=== PATIENT | female | born 2000 | race African-American/Black ===

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

== ENCOUNTER 2023-02-06 00:44 | Emergency (ER) | payer MEDICAID ==
[~2023-02-06] VITALS: Ht 165.1 cm; Wt 60.0 kg
[2023-02-06] MEDS ORDERED: NALOXONE HCL 0.4 MG/ML VIAL ONE (00:56)
[2023-02-06] MEDS ORDERED: NALOXONE HCL 0.4 MG/ML VIAL IV ONE (01:15)
[2023-02-06 01:25] LABS: Hemoglobin 9.7 g/dL (12.2-16.2); Red Cell Distribution Width 19.5 % (11.8-14.3)
[2023-02-06 01:29] LABS: Mean Corpuscular Hemoglobin 21.1 pg (28.0-32.0); Mean Corpuscular Hgb Conc. 29.5 g/dL (32.0-36.0); Mean Corpuscular Volume 71.6 fL (80.0-100.0); Red Blood Cells 4.61 10^6/uL (4.0-5.20); White Blood Cell 9.6 10^3/uL (4.4-10.8)
[2023-02-06] MEDS ORDERED: PANTOPRAZOLE 40 MG/10 ML VIAL INJ IV ONE (01:30)
[2023-02-06] MEDS ORDERED: ONDANSETRON HCL 4 MG/2 ML VIAL IV ONE (01:30)
[2023-02-06 01:33] LABS: Basophils % (manual) 0 (0.0-2.0); Blast Cells 0; Metamyelocytes % 0; Myelocytes % 0; Promyelocytes % 0; Reactive Lymphocytes 0
[2023-02-06 01:43] LABS: Alanine Aminotransferase 35 U/L (7-40); Alkaline Phosphatase 66 U/L (46-116); Anion Gap 16 (5-15); BUN/Creatinine Ratio 14.6 (10.0-20.0); Blood Urea Nitrogen 12 mg/dL (9-23); Calcium 9.1 mg/dL (8.5-10.1); Carbon Dioxide 17 mmol/L (20-30); Chloride 110 mmol/L (98-107); Glucose 96 mg/dL (74-106); Potassium 2.9 mmol/L (3.5-5.1); Sodium 143 mmol/L (136-145)
[2023-02-06 01:44] VITALS: TEMP 97.7
[2023-02-06 01:44] LABS: Albumin 4.3 g/dL (3.2-4.8); Aspartate Aminotransferase 56 U/L (13-40); Bilirubin, Total 1.2 mg/dL (0.2-1.0)
[2023-02-06 01:45] LABS: Total Protein 6.8 g/dL (5.7-8.2)
[2023-02-06 01:52] LABS: Blood Alcohol 279.7 mg/dL (<10)
[2023-02-06 02:59] LABS: Anisocytosis Slight; Band Neutrophils % (manual) 1; Eosinophils % (manual) 2 (0-7); Hypochromia Moderate; Lymphocytes % (manual) 54 (10.0-50.0); Monocytes % (manual) 15 (0-12)
[2023-02-06 03:06] LABS: Platelet Estimate Adequate
[2023-02-06] MEDS ORDERED: POTASSIUM CHL 20MEQ/100ML 100 ML IV ONE (05:00)
[2023-02-06] MEDS ORDERED: SODIUM CHLORIDE 0.9% 1,000 ML IVB ONE (05:00)
[2023-02-06 06:00] VITALS: BP 97/56; RESP 20; O2SAT 100
[2023-02-06 06:37] VITALS: PULSE 107
== END 2023-02-06 08:19 | disposition home or self-care (01) ==
LOC: EDBD 00:44 → ER 00:44
DX: F10.10 Alcohol abuse, uncomplicated (principal); R10.2 Pelvic and perineal pain; Y90.0 Blood alcohol level of less than 20 mg/100 ml
CPT/HCPCS: 36415; 70450; 80053; 80320; 82962; 83880; 84484; 84702; 85007; 85027; 93005; 96361; 96374; 96375; 99285; C9113; J2310; J2405; J3480; J7030

== ENCOUNTER 2023-07-14 21:13 | Emergency (ER) | payer MEDICAID ==
[~2023-07-14] VITALS: Ht 172.7 cm; Wt 60.0 kg
[2023-07-14 21:45] VITALS: TEMP 97
[2023-07-14 22:03] VITALS: PULSE 61; RESP 23; O2SAT 98
[2023-07-14 22:38] LABS: Basophils # (auto) 0 10 ^3/uL (0-0.2); Eosinophils # (auto) 0.1 10 ^3/uL (0-0.8); Hemoglobin 9.7 g/dL (12.2-16.2); Lymphocytes # (auto) 1.7 10 ^3/uL (0.4-5.4); Monocytes # (auto) 0.4 10 ^3/uL (0-1.3)
[2023-07-14 22:40] LABS: Basophils % (auto) 0.9 % (0.0-2.0); Eosinophils % (auto) 1.6 % (0.0-7.0); Hematocrit 31.3 % (36.0-46.0); Lymphocytes % (auto) 46.1 % (10.0-50.0); Mean Corpuscular Hemoglobin 21.4 pg (28.0-32.0); Mean Corpuscular Hgb Conc. 31.1 g/dL (32.0-36.0); Monocytes % (auto) 11.6 % (0.0-12.0); Neutrophils # (auto) 1.5 10 ^3/uL (1.6-8.6); Neutrophils % (auto) 39.8 % (37.0-80.0); Nucleated Red Blood Cells % 0.1 %; Red Blood Cells 4.54 10^6/uL (4.0-5.20); White Blood Cell 3.7 10^3/uL (4.4-10.8)
[2023-07-14 22:45] LABS: Red Cell Distribution Width 20.3 % (11.8-14.3)
[2023-07-14 22:57] LABS: Chloride 108 mmol/L (98-107); Potassium 3.3 mmol/L (3.5-5.1); Sodium 141 mmol/L (136-145)
[2023-07-14 22:58] LABS: Anion Gap 8 (5-15); Carbon Dioxide 25 mmol/L (20-30)
[2023-07-14 22:59] LABS: Calcium 9.2 mg/dL (8.5-10.1)
[2023-07-14 23:03] LABS: Glucose 108 mg/dL (74-106)
[2023-07-14 23:04] LABS: BUN/Creatinine Ratio 8.8 (10.0-20.0); Blood Alcohol 245.3 mg/dL (<10); Blood Urea Nitrogen 8 mg/dL (9-23)
[2023-07-15 00:18] LABS: Amphetamine Screen, Urine Neg (NEGATIVE); Barbiturate Scree,Urine Neg (NEGATIVE); Benzodiazephine Screen, Urine Neg (NEGATIVE); Cannabinoid Screen, Urine Pos (NEGATIVE); Cocaine Screen, Urine Neg (NEGATIVE); Opiate Scree,Urine Neg (NEGATIVE); Phencyclidine Screen, Urine Neg (NEGATIVE)
[2023-07-15] MEDS: SODIUM CHLORIDE 0.9% 500 ML IV ONE (02:15)
[2023-07-15 04:36] VITALS: BP 134/81; PULSE 81; RESP 16; O2SAT 100
== END 2023-07-15 04:45 | disposition home or self-care (01) ==
LOC: EDBD 21:13 → ER 21:13
DX: F10.129 Alcohol abuse with intoxication, unspecified (principal); R10.2 Pelvic and perineal pain; F12.10 Cannabis abuse, uncomplicated; F41.9 Anxiety disorder, unspecified; Z79.899 Other long term (current) drug therapy; Y90.0 Blood alcohol level of less than 20 mg/100 ml
CPT/HCPCS: 36415; 70450; 80048; 80307; 80320; 84702; 85025; 93005; 96360; 99285; J7040; 51701